=== PATIENT | male | born 1925 | race Caucasian/White ===

== ENCOUNTER 2017-03-11 17:45 | Emergency (ER) | payer OTHER ==
[~2017-03-11] VITALS: Ht 172.7 cm; Wt 81.7 kg
[~2017-03-11 17:45] MED LIST: AMBIEN 5 MG TABL5 M1 PO; ASPIR 8181 MG PO; CARVEDILOL12.5 MG PO; CEFTIN 250250 MG/52 PO; HYDRALAZINE 10M10 MG PO; ISORDIL10 MG PO; PACERONE 200 M200 M1 PO
== END 2017-03-11 18:00 ==
LOC: ER 17:45
DX: I46.9 Cardiac arrest, cause unspecified (principal); I42.9 Cardiomyopathy, unspecified; Z88.5 Allergy status to narcotic agent; Z88.8 Allergy status to other drugs, medicaments and biological substances; Z87.891 Personal history of nicotine dependence; F10.99 Alcohol use, unspecified with unspecified alcohol-induced disorder; Z79.82 Long term (current) use of aspirin